=== PATIENT | female | born 1940 | race Caucasian/White ===

== ENCOUNTER 2017-12-26 17:30 | Inpatient (IN) | payer MEDICARE ==
[~2017-12-26] VITALS: Ht 157.5 cm; Wt 65.0 kg
[2017-12-26] VITALS (16 sets, daily range): BP systolic 90–140; BP diastolic 64–89; BMI 28.4
--- NOTE | ~2017-12-26 | CN ---
PATIENT NAME:KAVON BAILEY MEDICAL RECORD: [id number] : 38 LOCATION:[facility].[id number] ADMIT DATE: 12/26/17 ACCOUNT: [id number] CONSULTING PHYSICIAN: ANRDES PARRY MD REFERRING PHYSICIAN: WINSTON JOHNSON MD DATE OF CONSULTATION: 12/27/2017 CONSULT REQUESTING PHYSICIAN: Winston Johnson MD REASON FOR CONSULTATION: Acute hypoxic respiratory failure, pulmonary edema, pneumonia, WV. HISTORY OF PRESENT ILLNESS: Ms. Bailey is a 77-year-old female. She is not doing well for the last 2 weeks. She has worsening shortness of breath, orthopnea, PND. She is also having chill and cough without much sputum production. She was seen in the [place] ER, found out the patient is in pulmonary edema, acute WV, and atrial fibrillation. The patient was transferred to [facility] for advanced care. She is seen by Dr. Jimenez. REVIEW OF THE SYSTEMS: Mainly in the history of present illness. PAST MEDICAL HISTORY: 1. Hypertension. 2. Congestive heart failure. 3. WV. 4. Atrial fibrillation. 5. Angina. 6. History of CA of colon, status post resection. PAST SURGICAL HISTORY: 1. She had colon surgery. 2. Appendectomy. ALLERGIES: SHE IS ALLERGIC TO LEVAQUIN, MELOXICAM, NAPROXEN, PROMETHAZINE. MEDICATIONS: [place] [employer] reviewed. PERSONAL AND SOCIAL HISTORY: The patient has remote history of smoking. She is nondrinker. FAMILY HISTORY: Significant for cardiovascular diseases. PHYSICAL EXAMINATION: GENERAL: Now, the patient is lying comfortably in bed. She is not in acute distress. She is wearing nasal cannula oxygen. VITAL SIGNS: The blood pressure is 147/93, pulse is 128 and regular, respirations 24, temperature 97.3, SpO2 92% on 9 liters oxymizer. HEENT: Conjunctivae are pink. Sclerae are not icteric. NECK: Neck is supple. No JVD. CHEST: There are bilateral crackles. No wheezing. HEART: Rate and rhythm regular. Normal sound. No murmur. ABDOMEN: Abdomen is soft. Bowel sounds present. No hepatosplenomegaly. RECTAL: Deferred. EXTREMITIES: No cyanosis. No clubbing. No pedal edema. SKIN: The skin is warm. Normal turgor. CONSULT REPORT [id number] KAVON BAILEY CENTRAL NERVOUS SYSTEM: The patient is awake and alert. There is no obvious cranial nerve abnormality. The gait was not tested. CHEST RADIOGRAPH: There is bilateral infiltrate. There are increased interstitial markings. There are small bilateral pleural effusions. LABORATORY DATA: CBC; WBC 16.3, hemoglobin 9.3, hematocrit is 26.9, platelet count is 372. BUN is 40, creatinine is 2.7. CK is 302, CK-MB is 8.7, troponin is 3.068. ProBNP is 19,078. IMPRESSION: 1. Acute hypoxic respiratory failure. 2. Pulmonary edema. 3. Pneumonia, bilateral, most likely community-acquired pneumonia. 4. Atrial fibrillation. 5. Leukocytosis. 6. Congestive heart failure with elevated proBNP, possible systolic dysfunction. 7. Acute WV. 8. Acute renal failure. 9. Bilateral pleural effusion secondary to congestive heart failure. RECOMMENDATION: 1. We will continue supplemental oxygen. 2. Start her on Lasix IV. 3. Albuterol/ipratropium nebulizer as required. 4. Heart rate control per Dr. Jimenez. 5. Continue Rocephin and Zithromax IV. 6. Followup labs and chest radiograph. The patient does have a history of smoking, but there is no documented COPD. Dr. Johnson, thank you for involving me in the care of Ms. Bailey. The critical care time is 45 minutes. TRANSINT:[id number] Voice Confirmation ID: [id number] DOCUMENT ID: [id number] ANDRES PARRY MD at 1208 CC: TOMMY GUZMAN [id number] DICTATION DATE: 12/27/17 1519 ABRASIVE WORKER: 12/27/17 1558 ADM IN [facility] [address] [place] [address]
[2017-12-26] MEDS ORDERED: ULTRAM50 MG PO (19:54)
[2017-12-26] MEDS ORDERED: LOPRESSOR25 MG PO (20:29)
[2017-12-26] MEDS ORDERED: FUROSEMIDE20 MG PO (20:30)
[2017-12-26] MEDS ORDERED: PRILOSEC2.5 MG PO (20:32)
[2017-12-26] MEDS ORDERED: ZESTRIL40 MG PO (20:32)
[2017-12-26] MEDS ORDERED: LIPITOR40 MG PO (20:33)
[2017-12-26] MEDS ORDERED: NORVASC10 MG PO (20:33)
[2017-12-26 20:43] LABS: CKMB 8.7 U/L (0.0-3.6); CREATINE KINASE 302 UL (21-215); FERRITIN 374 ng/mL (3-244); PRO BNP 19078 pg/mL (0-450)
[2017-12-26 20:46] LABS: TROPONIN-I 3.068 ng/mL (0.000-0.060)
[2017-12-26 20:55] LABS: % SATURATION 9 % (15-55); IRON 16 ug/dl (35-150); TOTAL IRON BIND CAPACITY 162 ug/dl (260-445); UNSAT IRON BIND CAPACITY 146 ug/dl (150-375)
[2017-12-27] VITALS (35 sets, daily range): BP systolic 104–169; BP diastolic 59–100; BMI 27.6
[2017-12-27 02:51] LABS: BASOPHILS 0 % (0-2); EOSINOPHILS 0 % (0-7); HEMATOCRIT 26.9 % (36.0-48.0); HEMOGLOBIN 9.3 g/dL (12-16); IMMATURE GRANULOCYTES 0.3 % (0-5); LYMPHOCYTES 4.5 % (15-50); MCH 26.8 pg (26.0-34.0); MCHC 34.6 g/dL (31.0-37.0); MCV 77.5 fL (80.0-100.0); MEAN PLATELET VOLUME 8.7 fL (7.4-10.4); MONOCYTES 2.1 % (2-11); NEUTROPHILS 93.1 % (40-80); PLATELET COUNT 372 10x3/uL (130-400); RBC 3.47 10x6/uL (4.00-5.40); RDW 13.7 % (11.5-14.5); WBC 16.3 10x3/uL (4.8-10.8)
[2017-12-27 03:05] LABS: CALC OSMOLALITY 263 mosm/kg (275-300); CALCIUM 8.7 mg/dL (8.5-10.1); CHLORIDE - SERUM 90 mmol/L (98-107); CKMB 27.1 U/L (0.0-3.6); CREATINE KINASE 309 UL (21-215); CREATININE - SERUM 2.7 mg/dL (0.6-1.3); GLUCOSE 130 mg/dL (74-106); POTASSIUM - SERUM 4.6 mmol/L (3.5-5.1); SODIUM 125 mmol/L (136-145); UREA NITROGEN 40 mg/dL (7-18); eGFR NON AFRICAN AMERICAN 18 mL/min (90-120)
[2017-12-27 03:06] LABS: TROPONIN-I 6.306 ng/mL (0.000-0.060)
[2017-12-27 09:17] LABS: CREATINE KINASE 303 UL (21-215)
[2017-12-27 09:21] LABS: TROPONIN-I 3.823 ng/mL (0.000-0.060)
[2017-12-28] VITALS (24 sets, daily range): BP systolic 115–145; BP diastolic 60–104; Ht 157.5 cm; Wt 65.0 kg
[2017-12-28 04:40] LABS: BASOPHILS 0 % (0-2); EOSINOPHILS 0 % (0-7); HEMATOCRIT 25.3 % (36.0-48.0); HEMOGLOBIN 8.8 g/dL (12-16); IMMATURE GRANULOCYTES 0.4 % (0-5); LYMPHOCYTES 4.4 % (15-50); MCH 26.3 pg (26.0-34.0); MCHC 34.8 g/dL (31.0-37.0); MCV 75.7 fL (80.0-100.0); MEAN PLATELET VOLUME 8.7 fL (7.4-10.4); MONOCYTES 5.8 % (2-11); NEUTROPHILS 89.4 % (40-80); PLATELET COUNT 445 10x3/uL (130-400); RBC 3.34 10x6/uL (4.00-5.40); WBC 20.2 10x3/uL (4.8-10.8)
[2017-12-28 04:55] LABS: CALCIUM 8.9 mg/dL (8.5-10.1); CARBON DIOXIDE 17.9 mmol/L (21.0-32.0); CREATININE - SERUM 2.9 mg/dL (0.6-1.3)
[2017-12-28 05:04] LABS: POTASSIUM - SERUM 3.9 mmol/L (3.5-5.1)
[2017-12-28 08:19] LABS: FOLATE (FOLIC ACID) - SERUM >20.0 ng/mL (>3.0)
[2017-12-29] VITALS (25 sets, daily range): BP systolic 104–156; BP diastolic 57–86
[2017-12-29 04:42] LABS: BASOPHILS 0.1 % (0-2); EOSINOPHILS 0 % (0-7); HEMATOCRIT 25.4 % (36.0-48.0); HEMOGLOBIN 8.7 g/dL (12-16); IMMATURE GRANULOCYTES 0.7 % (0-5); LYMPHOCYTES 5.8 % (15-50); MCHC 34.3 g/dL (31.0-37.0); MCV 75.8 fL (80.0-100.0); MEAN PLATELET VOLUME 8.9 fL (7.4-10.4); MONOCYTES 3.8 % (2-11); NEUTROPHILS 89.6 % (40-80); PLATELET COUNT 447 10x3/uL (130-400); RBC 3.35 10x6/uL (4.00-5.40); RDW 14.1 % (11.5-14.5); WBC 19.9 10x3/uL (4.8-10.8)
[2017-12-29 04:51] LABS: ANION GAP 22.9 mmol/L (8-16); CALCIUM 8.7 mg/dL (8.5-10.1); CARBON DIOXIDE 17.1 mmol/L (21.0-32.0); CREATININE - SERUM 3.3 mg/dL (0.6-1.3)
[2017-12-30] VITALS (24 sets, daily range): BP systolic 112–179; BP diastolic 56–109
[2017-12-30 05:13] LABS: CALCIUM 8.4 mg/dL (8.5-10.1); CARBON DIOXIDE 17.2 mmol/L (21.0-32.0); CREATININE - SERUM 3.9 mg/dL (0.6-1.3); POTASSIUM - SERUM 3.9 mmol/L (3.5-5.1)
[2017-12-30 05:17] LABS: BASOPHILS 0 % (0-2); EOSINOPHILS 0 % (0-7); HEMATOCRIT 24.1 % (36.0-48.0); HEMOGLOBIN 8.4 g/dL (12-16); LYMPHOCYTES 5.7 % (15-50); MCH 26.2 pg (26.0-34.0); MCHC 34.9 g/dL (31.0-37.0); MCV 75.1 fL (80.0-100.0); MEAN PLATELET VOLUME 8.8 fL (7.4-10.4); MONOCYTES 4.1 % (2-11); NEUTROPHILS 89.2 % (40-80); PLATELET COUNT 408 10x3/uL (130-400); RBC 3.21 10x6/uL (4.00-5.40); RDW 14.2 % (11.5-14.5); WBC 20.9 10x3/uL (4.8-10.8)
[2017-12-30 05:22] LABS: ANION GAP 21.7 mmol/L (8-16)
[2017-12-31] VITALS (24 sets, daily range): BP systolic 100–182; BP diastolic 48–103
[2017-12-31 05:37] LABS: BASOPHILS 0.1 % (0-2); EOSINOPHILS 0 % (0-7); HEMATOCRIT 27.3 % (36.0-48.0); HEMOGLOBIN 9.3 g/dL (12-16); IMMATURE GRANULOCYTES 1.3 % (0-5); LYMPHOCYTES 2.6 % (15-50); MCHC 34.1 g/dL (31.0-37.0); MCV 76.3 fL (80.0-100.0); MEAN PLATELET VOLUME 8.5 fL (7.4-10.4); MONOCYTES 3.8 % (2-11); NEUTROPHILS 92.2 % (40-80); PLATELET COUNT 388 10x3/uL (130-400); RBC 3.58 10x6/uL (4.00-5.40); RDW 14.3 % (11.5-14.5); WBC 30.1 10x3/uL (4.8-10.8)
[2017-12-31 05:55] LABS: CALCIUM 8.5 mg/dL (8.5-10.1); CARBON DIOXIDE 13.8 mmol/L (21.0-32.0); CREATININE - SERUM 4.8 mg/dL (0.6-1.3); POTASSIUM - SERUM 4.2 mmol/L (3.5-5.1)
[2017-12-31 06:02] LABS: ANION GAP 26.4 mmol/L (8-16)
[2018-01-01] VITALS (66 sets, daily range): BP systolic 85–149; BP diastolic 35–81
[2018-01-01 09:06] LABS: BASOPHILS 0.1 % (0-2); EOSINOPHILS 0.1 % (0-7); HEMATOCRIT 20.6 % (36.0-48.0); IMMATURE GRANULOCYTES 1.9 % (0-5); LYMPHOCYTES 6.2 % (15-50); MCH 25.9 pg (26.0-34.0); MEAN PLATELET VOLUME 8.2 fL (7.4-10.4); MONOCYTES 0.3 % (2-11); NEUTROPHILS 91.4 % (40-80); PLATELET COUNT 318 10x3/uL (130-400); RDW 14.5 % (11.5-14.5)
[2018-01-01 09:14] LABS: ALBUMIN 1.5 g/dL (3.4-5.0); ANION GAP 18.1 mmol/L (8-16); BILIRUBIN - TOTAL 0.33 mg/dL (0.2-1.3); CREATININE - SERUM 4.1 mg/dL (0.6-1.3); MAGNESIUM - SERUM 1.5 mg/dL (1.8-2.4); PHOSPHOROUS 5.2 mg/dL (2.5-4.9); POTASSIUM - SERUM 3.7 mmol/L (3.5-5.1); PROTEIN - SERUM 5.3 g/dL (6.4-8.2)
[2018-01-01 09:16] LABS: CARBON DIOXIDE 22.6 mmol/L (21.0-32.0)
[2018-01-01 09:26] LABS: MCV 74.1 fL (80.0-100.0); RBC 2.78 10x6/uL (4.00-5.40)
[2018-01-01 09:28] LABS: HEMOGLOBIN 7.2 g/dL (12-16)
[2018-01-01 11:10] LABS: HEPATITIS C ANTIBODY <0.1 (0.0-0.9)
[2018-01-02] VITALS (32 sets, daily range): BP systolic 93–122; BP diastolic 36–71
[2018-01-02 04:08] LABS: BASOPHILS 0.2 % (0-2); EOSINOPHILS 0.1 % (0-7); HEMATOCRIT 22.9 % (36.0-48.0); HEMOGLOBIN 7.8 g/dL (12-16); IMMATURE GRANULOCYTES 4.2 % (0-5); LYMPHOCYTES 4.1 % (15-50); MCH 26.4 pg (26.0-34.0); MCHC 34.1 g/dL (31.0-37.0); MEAN PLATELET VOLUME 8.6 fL (7.4-10.4); MONOCYTES 11.6 % (2-11); NEUTROPHILS 79.8 % (40-80); RBC 2.96 10x6/uL (4.00-5.40); RDW 14.9 % (11.5-14.5); WBC 13.9 10x3/uL (4.8-10.8)
[2018-01-02 04:09] LABS: MCV 77.4 fL (80.0-100.0); PLATELET COUNT 240 10x3/uL (130-400)
[2018-01-02 04:26] LABS: ALBUMIN 1.2 g/dL (3.4-5.0); ANION GAP 14.6 mmol/L (8-16); BILIRUBIN - TOTAL 0.3 mg/dL (0.2-1.3); CALCIUM 7.8 mg/dL (8.5-10.1); CARBON DIOXIDE 25.8 mmol/L (21.0-32.0); POTASSIUM - SERUM 3.4 mmol/L (3.5-5.1); PROTEIN - SERUM 4.6 g/dL (6.4-8.2)
[2018-01-02 04:36] LABS: CREATININE - SERUM 2.9 mg/dL (0.6-1.3); PHOSPHOROUS 3.6 mg/dL (2.5-4.9)
[2018-01-02 07:57] LABS: APPEARANCE CLOUDY (CLEAR); BILIRUBIN NEGATIVE (NEGATIVE); COLOR DK YELLOW (YELLOW); GLUCOSE 50 mg/dL (NEGATIVE); KETONE NEGATIVE (NEGATIVE); NITRITE NEGATIVE (NEGATIVE); PROTEIN NEGATIVE (NEGATIVE); UROBILINOGEN NORMAL (NORMAL)
[2018-01-02 08:00] LABS: BACTERIA MODERATE /hpf (NONE SEEN); EPITHELIAL CELLS 0-5 /hpf (0-5)
[2018-01-03] VITALS (23 sets, daily range): BP systolic 86–175; BP diastolic 43–99
[2018-01-03 04:11] LABS: BASOPHILS 0.1 % (0-2); EOSINOPHILS 0.1 % (0-7); HEMATOCRIT 26.9 % (36.0-48.0); IMMATURE GRANULOCYTES 6.3 % (0-5); LYMPHOCYTES 3.7 % (15-50); MCH 27.5 pg (26.0-34.0); MCHC 35.3 g/dL (31.0-37.0); MEAN PLATELET VOLUME 8.6 fL (7.4-10.4); MONOCYTES 7.7 % (2-11); NEUTROPHILS 82.1 % (40-80); PLATELET COUNT 242 10x3/uL (130-400); RBC 3.45 10x6/uL (4.00-5.40); RDW 15.5 % (11.5-14.5)
[2018-01-03 04:21] LABS: HEMOGLOBIN 9.5 g/dL (12-16); WBC 19.7 10x3/uL (4.8-10.8)
[2018-01-03 04:22] LABS: ANION GAP 16.8 mmol/L (8-16); CALCIUM 8.7 mg/dL (8.5-10.1); CARBON DIOXIDE 26.1 mmol/L (21.0-32.0); POTASSIUM - SERUM 3.9 mmol/L (3.5-5.1)
[2018-01-03 04:24] LABS: ALBUMIN 1.6 g/dL (3.4-5.0); CREATININE - SERUM 4.2 mg/dL (0.6-1.3)
[2018-01-03 04:35] LABS: BILIRUBIN - TOTAL 0.4 mg/dL (0.2-1.3); PROTEIN - SERUM 5.5 g/dL (6.4-8.2)
[2018-01-04] VITALS (16 sets, daily range): BP systolic 95–163; BP diastolic 44–89
[2018-01-04 05:37] LABS: HEMOGLOBIN 9.4 g/dL (12-16); MCHC 33.6 g/dL (31.0-37.0); MCV 80.5 fL (80.0-100.0); MEAN PLATELET VOLUME 9.1 fL (7.4-10.4); PLATELET COUNT 247 10x3/uL (130-400); RBC 3.48 10x6/uL (4.00-5.40); WBC 21.2 10x3/uL (4.8-10.8)
[2018-01-04 05:57] LABS: ALBUMIN 1.6 g/dL (3.4-5.0); ANION GAP 14.1 mmol/L (8-16); BILIRUBIN - TOTAL 0.3 mg/dL (0.2-1.3); CALCIUM 8.2 mg/dL (8.5-10.1); CARBON DIOXIDE 26.7 mmol/L (21.0-32.0); CREATININE - SERUM 3.6 mg/dL (0.6-1.3); PHOSPHOROUS 2.8 mg/dL (2.5-4.9); POTASSIUM - SERUM 3.8 mmol/L (3.5-5.1); PROTEIN - SERUM 5.2 g/dL (6.4-8.2)
[2018-01-04 07:33] LABS: EOSINOPHILS 2 % (0-7); LYMPHOCYTES 12 % (15-50); MONOCYTES 10 % (2-11); NEUTROPHILS 63 % (40-80); PLATELET ESTIMATE NORMAL
[2018-01-04 07:34] LABS: ANISOCYTOSIS OCC
[2018-01-05] VITALS (24 sets, daily range): BP systolic 141–184; BP diastolic 50–100
[2018-01-05 04:28] LABS: BASOPHILS 0.2 % (0-2); EOSINOPHILS 0.1 % (0-7); HEMATOCRIT 30.4 % (36.0-48.0); HEMOGLOBIN 10.1 g/dL (12-16); IMMATURE GRANULOCYTES 6.2 % (0-5); LYMPHOCYTES 3.6 % (15-50); MCHC 33.2 g/dL (31.0-37.0); MCV 81.3 fL (80.0-100.0); MEAN PLATELET VOLUME 8.9 fL (7.4-10.4); MONOCYTES 7.6 % (2-11); NEUTROPHILS 82.3 % (40-80); PLATELET COUNT 234 10x3/uL (130-400); RBC 3.74 10x6/uL (4.00-5.40); WBC 29.5 10x3/uL (4.8-10.8)
[2018-01-05 04:42] LABS: ANION GAP 16.4 mmol/L (8-16); BILIRUBIN - TOTAL 0.58 mg/dL (0.2-1.3); CALCIUM 9.1 mg/dL (8.5-10.1); CARBON DIOXIDE 25.9 mmol/L (21.0-32.0); CREATININE - SERUM 2.9 mg/dL (0.6-1.3); POTASSIUM - SERUM 4.3 mmol/L (3.5-5.1); PROTEIN - SERUM 6.2 g/dL (6.4-8.2)
[2018-01-05 04:44] LABS: ALBUMIN 2.6 g/dL (3.4-5.0)
[2018-01-05 11:48] LABS: ERYTHROCYTE SEDIMENTATION RATE 44 mm/hr (0-30)
[2018-01-06] VITALS (25 sets, daily range): BP systolic 119–178; BP diastolic 54–994
[2018-01-06 04:29] LABS: BASOPHILS 0.1 % (0-2); EOSINOPHILS 0.2 % (0-7); HEMATOCRIT 28.9 % (36.0-48.0); HEMOGLOBIN 9.7 g/dL (12-16); IMMATURE GRANULOCYTES 4.9 % (0-5); LYMPHOCYTES 3.5 % (15-50); MCH 27.5 pg (26.0-34.0); MCHC 33.6 g/dL (31.0-37.0); MCV 81.9 fL (80.0-100.0); MONOCYTES 4.6 % (2-11); NEUTROPHILS 86.7 % (40-80); PLATELET COUNT 213 10x3/uL (130-400); RBC 3.53 10x6/uL (4.00-5.40); RDW 16.4 % (11.5-14.5); WBC 27.7 10x3/uL (4.8-10.8)
[2018-01-06 04:47] LABS: ALBUMIN 2.4 g/dL (3.4-5.0); ANION GAP 15.7 mmol/L (8-16); BILIRUBIN - TOTAL 0.57 mg/dL (0.2-1.3); CALCIUM 8.8 mg/dL (8.5-10.1); CARBON DIOXIDE 26.3 mmol/L (21.0-32.0); CREATININE - SERUM 2.9 mg/dL (0.6-1.3); PROTEIN - SERUM 5.7 g/dL (6.4-8.2)
[2018-01-06 04:54] LABS: PHOSPHOROUS 3.9 mg/dL (2.5-4.9)
[2018-01-06 10:20] LABS: ANA REFLEX - DIRECT Negative (Negative)
[2018-01-07] VITALS (24 sets, daily range): BP systolic 148–180; BP diastolic 45–90
[2018-01-07 04:08] LABS: BASOPHILS 0.1 % (0-2); EOSINOPHILS 0.1 % (0-7); HEMATOCRIT 30.2 % (36.0-48.0); HEMOGLOBIN 10.2 g/dL (12-16); IMMATURE GRANULOCYTES 3.6 % (0-5); LYMPHOCYTES 3.7 % (15-50); MCH 27.3 pg (26.0-34.0); MCHC 33.8 g/dL (31.0-37.0); MCV 80.7 fL (80.0-100.0); MEAN PLATELET VOLUME 9.1 fL (7.4-10.4); MONOCYTES 3.5 % (2-11); PLATELET COUNT 205 10x3/uL (130-400); RBC 3.74 10x6/uL (4.00-5.40); RDW 16.6 % (11.5-14.5); WBC 26.8 10x3/uL (4.8-10.8)
[2018-01-07 04:31] LABS: ANION GAP 19.3 mmol/L (8-16); BILIRUBIN - TOTAL 0.8 mg/dL (0.2-1.3); CALCIUM 9.6 mg/dL (8.5-10.1); CARBON DIOXIDE 24.1 mmol/L (21.0-32.0); MAGNESIUM - SERUM 2.2 mg/dL (1.8-2.4); POTASSIUM - SERUM 4.4 mmol/L (3.5-5.1); PROTEIN - SERUM 6.6 g/dL (6.4-8.2); VANCOMYCIN - RANDOM 17.6 ug/mL (10.0-20.0)
[2018-01-07 04:33] LABS: ALBUMIN 3.4 g/dL (3.4-5.0); CREATININE - SERUM 3.8 mg/dL (0.6-1.3)
[2018-01-07 17:11] LABS: ANCA - ANTIMYELOPEROXIDASE <9.0 U/mL (0.0-9.0); ANCA - ANTIPROTEINASE 3 <3.5 U/mL (0.0-3.5); ANCA - ATYPICAL <1:20 titer (Neg:<1:20); ANCA - CYTOPLASMIC <1:20 titer (Neg:<1:20); ANCA - PERINUCLEAR <1:20 titer (Neg:<1:20)
[2018-01-08] VITALS (24 sets, daily range): BP systolic 112–177; BP diastolic 54–96
[2018-01-08 05:52] LABS: BASOPHILS 0 % (0-2); EOSINOPHILS 0 % (0-7); HEMATOCRIT 27.7 % (36.0-48.0); HEMOGLOBIN 9.3 g/dL (12-16); IMMATURE GRANULOCYTES 1.9 % (0-5); LYMPHOCYTES 6.3 % (15-50); MCH 26.9 pg (26.0-34.0); MCHC 33.6 g/dL (31.0-37.0); MCV 80.1 fL (80.0-100.0); MONOCYTES 1.2 % (2-11); NEUTROPHILS 90.6 % (40-80); PLATELET COUNT 168 10x3/uL (130-400); RBC 3.46 10x6/uL (4.00-5.40); RDW 16.6 % (11.5-14.5); WBC 24.3 10x3/uL (4.8-10.8)
[2018-01-08 06:00] LABS: ALBUMIN 3.4 g/dL (3.4-5.0); BILIRUBIN - TOTAL 0.9 mg/dL (0.2-1.3); CALCIUM 9.2 mg/dL (8.5-10.1); CARBON DIOXIDE 24.7 mmol/L (21.0-32.0); CREATININE - SERUM 3.5 mg/dL (0.6-1.3); PHOSPHOROUS 5.2 mg/dL (2.5-4.9); PROTEIN - SERUM 6.4 g/dL (6.4-8.2); VANCOMYCIN - RANDOM 11.7 ug/mL (10.0-20.0)
[2018-01-08 06:01] LABS: POTASSIUM - SERUM 3.7 mmol/L (3.5-5.1)
[2018-01-09] VITALS (10 sets, daily range): BP systolic 122–167; BP diastolic 60–75
[2018-01-09 05:07] LABS: BASOPHILS 0 % (0-2); EOSINOPHILS 0.1 % (0-7); HEMATOCRIT 26.2 % (36.0-48.0); HEMOGLOBIN 8.7 g/dL (12-16); IMMATURE GRANULOCYTES 0.8 % (0-5); LYMPHOCYTES 4.9 % (15-50); MCH 26.9 pg (26.0-34.0); MCHC 33.2 g/dL (31.0-37.0); MCV 81.1 fL (80.0-100.0); MEAN PLATELET VOLUME 9.5 fL (7.4-10.4); MONOCYTES 2.7 % (2-11); NEUTROPHILS 91.5 % (40-80); PLATELET COUNT 149 10x3/uL (130-400); RBC 3.23 10x6/uL (4.00-5.40); RDW 16.6 % (11.5-14.5); WBC 16.8 10x3/uL (4.8-10.8)
[2018-01-09 05:27] LABS: ALBUMIN 3.4 g/dL (3.4-5.0); ANION GAP 17.5 mmol/L (8-16); CALCIUM 8.9 mg/dL (8.5-10.1); CARBON DIOXIDE 24.5 mmol/L (21.0-32.0); CREATININE - SERUM 2.8 mg/dL (0.6-1.3); PROTEIN - SERUM 6.3 g/dL (6.4-8.2); VANCOMYCIN - RANDOM 9.1 ug/mL (10.0-20.0)
[2018-01-10] VITALS: BP 134/53
[2018-01-10 04:00] VITALS: BP 139/52
[2018-01-10 05:09] LABS: BASOPHILS 0 % (0-2); EOSINOPHILS 0.4 % (0-7); HEMATOCRIT 24.2 % (36.0-48.0); IMMATURE GRANULOCYTES 0.6 % (0-5); LYMPHOCYTES 8.2 % (15-50); MCH 26.6 pg (26.0-34.0); MCHC 33.1 g/dL (31.0-37.0); MCV 80.4 fL (80.0-100.0); MEAN PLATELET VOLUME 9.8 fL (7.4-10.4); MONOCYTES 4.9 % (2-11); NEUTROPHILS 85.9 % (40-80); PLATELET COUNT 121 10x3/uL (130-400); RBC 3.01 10x6/uL (4.00-5.40); RDW 16.7 % (11.5-14.5)
[2018-01-10 05:18] LABS: WBC 10.7 10x3/uL (4.8-10.8)
[2018-01-10 05:19] LABS: ALBUMIN 3.6 g/dL (3.4-5.0); ANION GAP 17.2 mmol/L (8-16); BILIRUBIN - TOTAL 0.9 mg/dL (0.2-1.3); CALCIUM 8.6 mg/dL (8.5-10.1); CARBON DIOXIDE 23.5 mmol/L (21.0-32.0); CREATININE - SERUM 3.9 mg/dL (0.6-1.3); PHOSPHOROUS 4.8 mg/dL (2.5-4.9); POTASSIUM - SERUM 3.7 mmol/L (3.5-5.1); PROTEIN - SERUM 6.1 g/dL (6.4-8.2)
[2018-01-10 08:11] VITALS: BP 151/61
[2018-01-10 12:24] VITALS: BP 139/50
[2018-01-10 15:31] VITALS: BP 135/60
[2018-01-10 20:00] VITALS: BP 144/67
[2018-01-11 06:14] LABS: BASOPHILS 0 % (0-2); EOSINOPHILS 0.2 % (0-7); HEMATOCRIT 24.5 % (36.0-48.0); HEMOGLOBIN 8.1 g/dL (12-16); IMMATURE GRANULOCYTES 0.3 % (0-5); LYMPHOCYTES 5.7 % (15-50); MCH 27.1 pg (26.0-34.0); MCHC 33.1 g/dL (31.0-37.0); MCV 81.9 fL (80.0-100.0); MEAN PLATELET VOLUME 10.2 fL (7.4-10.4); MONOCYTES 4.7 % (2-11); NEUTROPHILS 89.1 % (40-80); PLATELET COUNT 113 10x3/uL (130-400); RBC 2.99 10x6/uL (4.00-5.40); RDW 16.9 % (11.5-14.5)
[2018-01-11 06:37] LABS: BILIRUBIN - TOTAL 1.05 mg/dL (0.2-1.3); CALCIUM 8.6 mg/dL (8.5-10.1); POTASSIUM - SERUM 3.5 mmol/L (3.5-5.1); PROTEIN - SERUM 6.1 g/dL (6.4-8.2); VANCOMYCIN - RANDOM 15.8 ug/mL (10.0-20.0)
[2018-01-11 06:41] LABS: CARBON DIOXIDE 29.5 mmol/L (21.0-32.0); CREATININE - SERUM 2.9 mg/dL (0.6-1.3)
[2018-01-11 08:24] VITALS: BP 137/66
[2018-01-11 12:35] VITALS: BP 106/46
[2018-01-11 15:47] VITALS: BP 122/58
[2018-01-11 20:00] VITALS: BP 134/44
[2018-01-12] VITALS: BP 137/46
[2018-01-12 04:00] VITALS: BP 141/53
[2018-01-12 07:03] LABS: BASOPHILS 0.1 % (0-2); EOSINOPHILS 0.8 % (0-7); HEMATOCRIT 24.8 % (36.0-48.0); HEMOGLOBIN 8.1 g/dL (12-16); IMMATURE GRANULOCYTES 0.3 % (0-5); LYMPHOCYTES 8.6 % (15-50); MCH 26.9 pg (26.0-34.0); MCHC 32.7 g/dL (31.0-37.0); MCV 82.4 fL (80.0-100.0); MEAN PLATELET VOLUME 10.4 fL (7.4-10.4); MONOCYTES 5.5 % (2-11); NEUTROPHILS 84.7 % (40-80); PLATELET COUNT 94 10x3/uL (130-400); RBC 3.01 10x6/uL (4.00-5.40); RDW 17.1 % (11.5-14.5); WBC 9.7 10x3/uL (4.8-10.8)
[2018-01-12 08:40] VITALS: BP 138/48
[2018-01-12 16:15] VITALS: BP 136/42
[2018-01-12 20:04] VITALS: BP 114/40
[2018-01-13 06:21] VITALS: BP 118/88
[2018-01-13 06:39] LABS: BASOPHILS 0 % (0-2); EOSINOPHILS 0.5 % (0-7); IMMATURE GRANULOCYTES 0.1 % (0-5); LYMPHOCYTES 7.2 % (15-50); MCHC 32.2 g/dL (31.0-37.0); MCV 83.9 fL (80.0-100.0); MONOCYTES 6.3 % (2-11); NEUTROPHILS 85.9 % (40-80); PLATELET COUNT 96 10x3/uL (130-400); RBC 2.74 10x6/uL (4.00-5.40); RDW 17.2 % (11.5-14.5); WBC 9.5 10x3/uL (4.8-10.8)
[2018-01-13 07:00] LABS: HEMOGLOBIN 7.4 g/dL (12-16)
[2018-01-13 07:19] LABS: PLATELET ESTIMATE DECREASED
[2018-01-13 07:28] LABS: ALBUMIN 4.1 g/dL (3.4-5.0); ANION GAP 15.1 mmol/L (8-16); BILIRUBIN - TOTAL 0.94 mg/dL (0.2-1.3); CALCIUM 8.8 mg/dL (8.5-10.1); CARBON DIOXIDE 28.9 mmol/L (21.0-32.0); CREATININE - SERUM 2.7 mg/dL (0.6-1.3); PROTEIN - SERUM 6.1 g/dL (6.4-8.2)
[2018-01-13 08:50] VITALS: BP 100/49
[2018-01-13 12:03] VITALS: BP 149/53
[2018-01-13 15:28] VITALS: BP 112/37
[2018-01-13 20:38] VITALS: BP 120/69
[2018-01-14 00:05] VITALS: BP 154/49
[2018-01-14 04:39] VITALS: BP 125/42
[2018-01-14 05:27] LABS: ALBUMIN 4.1 g/dL (3.4-5.0); ANION GAP 17.8 mmol/L (8-16); BILIRUBIN - TOTAL 0.88 mg/dL (0.2-1.3); CALCIUM 8.8 mg/dL (8.5-10.1); CARBON DIOXIDE 25.6 mmol/L (21.0-32.0); CREATININE - SERUM 4.2 mg/dL (0.6-1.3); POTASSIUM - SERUM 3.4 mmol/L (3.5-5.1); PROTEIN - SERUM 6.6 g/dL (6.4-8.2)
[2018-01-14 05:37] LABS: BASOPHILS 0.1 % (0-2); EOSINOPHILS 0.7 % (0-7); HEMATOCRIT 24.5 % (36.0-48.0); HEMOGLOBIN 8.3 g/dL (12-16); IMMATURE GRANULOCYTES 0.4 % (0-5); LYMPHOCYTES 9.9 % (15-50); MCH 27.8 pg (26.0-34.0); MCHC 33.9 g/dL (31.0-37.0); MEAN PLATELET VOLUME 9.8 fL (7.4-10.4); MONOCYTES 6.5 % (2-11); NEUTROPHILS 82.4 % (40-80); PLATELET COUNT 94 10x3/uL (130-400); RBC 2.99 10x6/uL (4.00-5.40); RDW 16.9 % (11.5-14.5); WBC 8.5 10x3/uL (4.8-10.8)
[2018-01-14 05:47] LABS: MCV 81.9 fL (80.0-100.0)
[2018-01-14 08:02] VITALS: BP 133/52
[2018-01-14] MEDS ORDERED: IPRAT-ALBUT 0.5-3 ML IH (11:47)
[2018-01-14] MEDS ORDERED: ALBUTEROL2.5 MG/3 M INH (11:47)
[2018-01-14] MEDS ORDERED: CORDARONE200 MG PO (11:48)
[2018-01-14] MEDS ORDERED: COREG12.5 MG PO (11:49)
[2018-01-14] MEDS ORDERED: CARDIZEM 90 MG90 MG PO (11:49)
[2018-01-14] MEDS ORDERED: FLORAJEN3 CAPS460 MG PO (11:51)
[2018-01-14] MEDS ORDERED: COLACE100 MG PO (11:51)
[2018-01-14] MEDS ORDERED: HUMULIN R100 U/ML SC (11:53)
[2018-01-14] MEDS ORDERED: PREDNISONE10 MG PO (11:58)
[2018-01-14 15:19] VITALS: BP 151/49
== END 2018-01-14 18:30 | DRG 207 ==
LOC: D.ICU 17:30 → D.M2 19:00 → D.ICU 19:00 → D.M2 01-09 18:07
PROVIDERS: Emergency Medicine; Family Medicine; Internal Medicine; Internal Medicine Nephrology
PROC: 5A09357 Assistance with Respiratory Ventilation, Less than 24 Consecutive Hours, Continuous Positive Airway Pressure (ICD-10-PCS; principal; 2017-12-26)
PROC: 5A1955Z Respiratory Ventilation, Greater than 96 Consecutive Hours (ICD-10-PCS; 2017-12-31)
PROC: 0BH17EZ Insertion of Endotracheal Airway into Trachea, Via Natural or Artificial Opening (ICD-10-PCS; 2017-12-31)
PROC: 05H633Z Insertion of Infusion Device into Left Subclavian Vein, Percutaneous Approach (ICD-10-PCS; 2017-12-31)
DX: J18.9 Pneumonia, unspecified organism (principal); J96.01 Acute respiratory failure with hypoxia; I50.23 Acute on chronic systolic (congestive) heart failure; N18.6 End stage renal disease; I21.A1 Myocardial infarction type 2; I13.0 Hypertensive heart and chronic kidney disease with heart failure and stage 1 through stage 4 chronic kidney disease, or unspecified chronic kidney disease; N17.9 Acute kidney failure, unspecified; J81.1 Chronic pulmonary edema; J90 Pleural effusion, not elsewhere classified; E87.1 Hypo-osmolality and hyponatremia; I13.2 Hypertensive heart and chronic kidney disease with heart failure and with stage 5 chronic kidney disease, or end stage renal disease; N39.0 Urinary tract infection, site not specified; G72.81 Critical illness myopathy; E44.0 Moderate protein-calorie malnutrition; E11.22 Type 2 diabetes mellitus with diabetic chronic kidney disease; I48.91 Unspecified atrial fibrillation; D72.829 Elevated white blood cell count, unspecified; D50.9 Iron deficiency anemia, unspecified; I25.9 Chronic ischemic heart disease, unspecified; Z68.28 Body mass index [BMI] 28.0-28.9, adult

== ENCOUNTER 2018-01-14 16:56 | Inpatient (IN) | payer MEDICARE, BC ==
[~2018-01-14] VITALS: Ht 157.5 cm; Wt 65.5 kg
--- NOTE | ~2018-01-14 | RHP ---
PATIENT: KAVON BAILEY MEDICAL RECORD: [id number] ACCOUNT: [id number] LOCATION:[facility]1117 : 39 ADMISSION DATE: 01/14/18 REHABILITATION HISTORY AND PHYSICAL EXAMINATION POST ADMISSION PHYSICIAN EXAMINATION POST-ADMISSION PHYSICAL EXAMINATION AND HISTORY AND PHYSICAL DATE OF ADMISSION: 01/14/2018 ADMITTING DIAGNOSIS: Critical illness myopathy. HISTORY OF PRESENT ILLNESS: The patient admitted to the inpatient rehab for critical illness myopathy. She is a 77-year-old female patient that is a former smoker, who presented to [place] as a transfer for higher level of care after a 2-week history of increasing dyspnea and nonproductive cough. She denied any chest pain at that time. She states that she had not been doing well for the previous 2 weeks. She had worsening shortness of breath, orthopnea, paroxysmal nocturnal dyspnea. She was having chills and cough without much sputum production. She was seen at [place] ER, was found to have pulmonary edema and an acute [place] and atrial fib. The patient was transferred to [place] for advanced care. Dr. Jimenez, Dr. Bartlett, and Dr. Mcgregor were consulted. She has no known cardiac history. On exam, she was in atrial fib. Cardiac enzymes were positive. Her renal functions were abnormal. She states that she has a longstanding history of anemia and currently takes iron. She has stage IV chronic kidney disease, followed by at [place]. On admit, she was placed in ICU with AFib with rapid ventricular response. She was started on an amiodarone drip and Cardizem. Echo showed a left ventricular ejection fraction of 30% with ebjfzkxn-gm-egnevy mitral regurg. She was diuresed with IV Lasix over the previous 3 days. Creatinine worsened from 2.7 to 3.9. Urine output was trending down. On 12/31, she had a Trialysis catheter placed for hemodialysis. She was also placed on ventilator for multifactorial acute hypoxic respiratory failure. On 01/04, she was extubated to 4-6 liters of O2 per Oxymizer and BiPAP as needed. On 01/09, she was moved out of ICU to a telemetry bed. She is currently on 3 liters of O2 per Oxymizer and BiPAP at bedtime. She is in a normal sinus rhythm with episodes of atrial flutter. She has a Ibrahim catheter for accurate I's and O's and is getting hemodialysis 3 times a week. She has had a prolonged immobility, progressive generalized weakness, especially in her lower extremities affecting her tolerance to PT. She is very fatigued, has limited flexion and extension of her lower extremities. Proximal muscle strength is decreased. She is kmsdwpca-fl-hjm assist for ADLs and tjfgmebv-zu-ymz assist for wvp-ck-kxdks and rgd-od-eotei. She is highly motivated and has good family support to regain her strength and also return back home, where she was moderately independent at that time. Comorbidities in this patient include acute hypoxic respiratory failure, pulmonary edema, pneumonia, alveolar interstitial edema, leukocytosis, congestive heart failure, acute [place], gyqyw-va-mhfmloh renal failure, bilateral pleural effusions, hyponatremia, anemia, atrial flutter, non-Q-wave [place], cardiomyopathy, valvular heart disease, end-stage renal disease, respiratory failure, chronic kidney disease with stage IV noted, and systolic congestive heart failure and atrial fib. PAST MEDICAL HISTORY: Significant for hypertension, congestive heart failure, coronary artery disease, atrial fib, angina, history of colon cancer, hyperlipidemia, chronic kidney disease, diabetes, rheumatic fever as a kid, HISTORY AND PHYSICAL [id number] KAVON BAILEY appendectomy in the past, degenerative disc disease, small bowel obstruction, iron deficiency, osteoarthritis, vertigo, weakness, pneumonia, history of tobacco use, kidney stones, renal failure, arthritis, chronic back pain. PAST SURGICAL HISTORY: Includes colon surgery and appendectomy. ALLERGIES: NAPROXEN, PROMETHAZINE, MELOXICAM, AND LEVAQUIN. CURRENT MEDICATIONS: Include prednisone, she is on a tapering dose. Protonix 40 mg daily. She is on Floranex. [facility]. Cardizem 90 mg every 6 hours. She is on Coreg 12.5 mg b.i.d. with meals, atorvastatin 40 mg daily. She is on low-resistant sliding scale insulin, Colace 100 mg b.i.d., Cordarone 400 mg t.i.d., Ventolin 2.5 mg every 4 hours p.r.n., and polyethylene glycol 17 grams in 8 ounces of water daily. HABITS: No history of alcohol or tobacco use at this time. Does have a previous history of tobacco use. FAMILY HISTORY: Noncontributory. SOCIAL HISTORY: The patient hopes to return back home over to the [facility] and get back to her prior level of functioning. REVIEW OF SYSTEMS: GENERAL: Does complain of weakness and fatigue. HEENT: Denies cold, cough, or congestion. CARDIOVASCULAR: Denies chest pain. PHYSICAL EXAMINATION: VITAL SIGNS: Stable, afebrile. GENERAL: Elderly female, in no acute distress upon exam. HEENT: Normocephalic and atraumatic. Mucosa moist. NECK: Supple. No lymphadenopathy. LUNGS: Clear at this time. HEART: Irregular rate and rhythm. ABDOMEN: Benign. EXTREMITIES: No clubbing, cyanosis or edema. NEUROLOGIC: She is intact. LABORATORY DATA: Her white count is 8.0, H&H of 8.3 and 25.2, and platelet count was noted to be 123. Sodium is 134, potassium 3.5, BUN and creatinine of 34 and 3.5, and blood sugar is noted to be 101. ASSESSMENT: This is a 77-year-old female patient admitted to rehab with a working diagnosis of critical illness myopathy secondary to prolonged stay in the ICU. The patient has potential to make improvement. We will institute the following multidisciplinary therapies including, but not limited to physical, occupational, respiratory, speech, nutritional services, prosthetics and orthotics. Given her complex medical condition and risks for more complications, rehabilitation services cannot be provided at a low level of care such as a halfway facility. PLAN: 1. Admit to [facility] for intensive inpatient therapy to include the following disciplines: HISTORY AND PHYSICAL [id number] KAVON BAILEY A. Physical therapy to improve gait, all transfer skills and bed mobility to a modified independent level. B. Occupational therapy to improve activities of daily living to a modified independent level. C. Case management to assist with discharge planning and placement options. D. Nutrition to assist with nutritional needs. E. Rehabilitation nursing to assist in monitoring the patient's underlying medical conditions and to assist with any type of bowel or bladder management. 2. The patient's current medications and medical care will be continued. 3. The patient will be placed on standard fall precautions. 4. The patient's estimated length of stay is approximately 7-10 days. 5. We will discuss this patient during care team staff meeting this week. I am going to go ahead and let renal address her current renal functions and also H&H. TRANSINT:[id number] Voice Confirmation ID: [id number] DOCUMENT ID: [id number] [place] notes whether there has been none or any medical/functional change since admission: - No change since prescreen. [place] attests patient continues to be appropriate for IRF: - Continues to be appropriate. TOMMY GUZMAN MD at 1405 CC: [id number] DICTATION DATE: 01/15/18 09 INDUSTRIAL SPRAYPAINTER: 01/15/18 1201 ADM IN [facility] [address] [place] [address]
[~2018-01-14 16:56] MED LIST: ALBUTEROL2.5 MG/3 M INH; CARDIZEM 90 MG90 MG PO; COLACE100 MG PO; CORDARONE200 MG PO; COREG12.5 MG PO; FLORAJEN3 CAPS460 MG PO; FUROSEMIDE20 MG PO; HUMULIN R100 U/ML SC; IPRAT-ALBUT 0.5-3 ML IH; LIPITOR40 MG PO; LOPRESSOR25 MG PO; NORVASC10 MG PO; PREDNISONE10 MG PO; PRILOSEC2.5 MG PO; ULTRAM50 MG PO; ZESTRIL40 MG PO
[2018-01-14 19:57] VITALS: BMI 28.0
[2018-01-15 06:58] LABS: BASOPHILS 0.1 % (0-2); EOSINOPHILS 0.5 % (0-7); HEMATOCRIT 25.2 % (36.0-48.0); HEMOGLOBIN 8.3 g/dL (12-16); IMMATURE GRANULOCYTES 0.4 % (0-5); LYMPHOCYTES 8.5 % (15-50); MCH 26.9 pg (26.0-34.0); MCHC 32.9 g/dL (31.0-37.0); MCV 81.6 fL (80.0-100.0); MEAN PLATELET VOLUME 10.1 fL (7.4-10.4); MONOCYTES 6.7 % (2-11); NEUTROPHILS 83.8 % (40-80); PLATELET COUNT 123 10x3/uL (130-400); RBC 3.09 10x6/uL (4.00-5.40); RDW 17.1 % (11.5-14.5)
[2018-01-15 07:13] LABS: ANION GAP 15.9 mmol/L (8-16); CARBON DIOXIDE 27.6 mmol/L (21.0-32.0); CREATININE - SERUM 3.5 mg/dL (0.6-1.3); POTASSIUM - SERUM 3.5 mmol/L (3.5-5.1)
[2018-01-15 10:16] VITALS: BMI 28.0
[2018-01-15 11:54] VITALS: BP 144/50
[2018-01-15 17:54] VITALS: BP 120/48
[2018-01-15 20:49] VITALS: BP 113/67
[2018-01-16 01:02] VITALS: BP 153/60
[2018-01-16 06:15] VITALS: BP 178/73
[2018-01-16 11:53] VITALS: BP 144/54
[2018-01-16 17:58] VITALS: BP 160/78
[2018-01-16 19:30] VITALS: BP 138/72
[2018-01-16 23:52] VITALS: BP 163/82
[2018-01-17 05:50] VITALS: BP 149/64
[2018-01-17 07:24] LABS: BASOPHILS 0.2 % (0-2); EOSINOPHILS 0.9 % (0-7); HEMATOCRIT 28.4 % (36.0-48.0); HEMOGLOBIN 9.8 g/dL (12-16); IMMATURE GRANULOCYTES 0.6 % (0-5); LYMPHOCYTES 8.2 % (15-50); MCH 27.5 pg (26.0-34.0); MCHC 34.5 g/dL (31.0-37.0); MCV 79.8 fL (80.0-100.0); MONOCYTES 8.1 % (2-11); PLATELET COUNT 194 10x3/uL (130-400); RBC 3.56 10x6/uL (4.00-5.40); RDW 16.7 % (11.5-14.5); WBC 8.9 10x3/uL (4.8-10.8)
[2018-01-17 07:25] LABS: ANION GAP 21.3 mmol/L (8-16); CALCIUM 9.3 mg/dL (8.5-10.1); CARBON DIOXIDE 21.8 mmol/L (21.0-32.0); CREATININE - SERUM 5.8 mg/dL (0.6-1.3); POTASSIUM - SERUM 4.1 mmol/L (3.5-5.1)
[2018-01-17 08:00] VITALS: BP 163/73
[2018-01-17 12:00] VITALS: BP 138/52
[2018-01-17 18:21] VITALS: BP 148/71
[2018-01-17 19:00] VITALS: BP 149/49
[2018-01-17 23:47] VITALS: BP 164/79
[2018-01-18 05:52] VITALS: BP 133/50
[2018-01-18 08:33] VITALS: BP 138/48
[2018-01-18 12:00] VITALS: BP 126/44
[2018-01-18 17:54] VITALS: BP 144/55
[2018-01-19 05:22] VITALS: BP 129/54
[2018-01-19 07:37] VITALS: BP 129/54
[2018-01-19 19:00] VITALS: BP 153/48
[2018-01-20 00:36] VITALS: BP 143/46
[2018-01-20 05:33] LABS: BASOPHILS 0.3 % (0-2); HEMATOCRIT 25.6 % (36.0-48.0); HEMOGLOBIN 8.3 g/dL (12-16); LYMPHOCYTES 12.4 % (15-50); MCH 26.8 pg (26.0-34.0); MCHC 32.4 g/dL (31.0-37.0); MCV 82.6 fL (80.0-100.0); MEAN PLATELET VOLUME 9.2 fL (7.4-10.4); MONOCYTES 8.8 % (2-11); NEUTROPHILS 76.5 % (40-80); PLATELET COUNT 210 10x3/uL (130-400); RDW 17.4 % (11.5-14.5); WBC 5.9 10x3/uL (4.8-10.8)
[2018-01-20 05:46] LABS: ANION GAP 13.7 mmol/L (8-16); CALCIUM 8.9 mg/dL (8.5-10.1); CARBON DIOXIDE 28.4 mmol/L (21.0-32.0); CREATININE - SERUM 3.5 mg/dL (0.6-1.3); POTASSIUM - SERUM 3.1 mmol/L (3.5-5.1)
[2018-01-20 06:14] VITALS: BP 141/46
[2018-01-20 12:00] VITALS: BP 169/50
[2018-01-20 18:00] VITALS: BP 173/49
[2018-01-20 19:09] VITALS: BP 173/49
[2018-01-21 00:13] VITALS: BP 137/65
[2018-01-21 06:00] VITALS: BP 147/53
[2018-01-21 18:00] VITALS: BP 145/46
[2018-01-22 00:28] VITALS: BP 140/43
[2018-01-22 05:34] VITALS: BP 147/41
[2018-01-22 06:10] LABS: BASOPHILS 0.2 % (0-2); EOSINOPHILS 1.9 % (0-7); HEMATOCRIT 25.1 % (36.0-48.0); HEMOGLOBIN 8.2 g/dL (12-16); IMMATURE GRANULOCYTES 1.5 % (0-5); LYMPHOCYTES 19.7 % (15-50); MCH 27.2 pg (26.0-34.0); MCHC 32.7 g/dL (31.0-37.0); MCV 83.4 fL (80.0-100.0); MEAN PLATELET VOLUME 8.7 fL (7.4-10.4); MONOCYTES 12.2 % (2-11); NEUTROPHILS 64.5 % (40-80); PLATELET COUNT 232 10x3/uL (130-400); RBC 3.01 10x6/uL (4.00-5.40); RDW 17.7 % (11.5-14.5); WBC 4.8 10x3/uL (4.8-10.8)
[2018-01-22 06:26] LABS: ANION GAP 14.6 mmol/L (8-16); CALCIUM 8.3 mg/dL (8.5-10.1); CARBON DIOXIDE 28.5 mmol/L (21.0-32.0); CREATININE - SERUM 3.5 mg/dL (0.6-1.3); POTASSIUM - SERUM 3.1 mmol/L (3.5-5.1)
[2018-01-22 08:19] VITALS: BP 168/48
[2018-01-22 12:00] VITALS: BP 162/46
[2018-01-22 18:12] VITALS: BP 160/69
[2018-01-22 20:32] VITALS: BP 128/46
[2018-01-23 00:05] VITALS: BP 121/59
[2018-01-23 05:27] VITALS: BP 139/47
[2018-01-23 10:49] VITALS: BP 145/45
[2018-01-23 12:40] VITALS: BP 140/42
[2018-01-23 17:54] VITALS: BP 151/50
[2018-01-23 20:20] VITALS: BP 140/42
[2018-01-24 00:05] VITALS: BP 165/47
[2018-01-24 06:38] VITALS: BP 143/48
[2018-01-24 08:34] VITALS: BP 133/41
[2018-01-24 18:00] VITALS: BP 152/49
[2018-01-25] VITALS: BP 166/60
[2018-01-25 05:00] VITALS: BP 163/60
[2018-01-25 08:00] VITALS: BP 171/76
[2018-01-25 12:00] VITALS: BP 130/46
[2018-01-25 19:00] VITALS: BP 140/50
[2018-01-26 01:18] VITALS: BP 123/58
[2018-01-26 06:34] LABS: BASOPHILS 0.4 % (0-2); EOSINOPHILS 1.5 % (0-7); HEMATOCRIT 34.7 % (36.0-48.0); HEMOGLOBIN 10.8 g/dL (12-16); IMMATURE GRANULOCYTES 3.5 % (0-5); LYMPHOCYTES 15.4 % (15-50); MCH 25.6 pg (26.0-34.0); MCHC 31.1 g/dL (31.0-37.0); MCV 82.2 fL (80.0-100.0); MEAN PLATELET VOLUME 9.3 fL (7.4-10.4); NEUTROPHILS 69.2 % (40-80); PLATELET COUNT 210 10x3/uL (130-400); RBC 4.22 10x6/uL (4.00-5.40); RDW 17.8 % (11.5-14.5); WBC 7.9 10x3/uL (4.8-10.8)
[2018-01-26 06:40] VITALS: BP 125/64
[2018-01-26 06:47] LABS: ANION GAP 19.9 mmol/L (8-16); CALCIUM 8.7 mg/dL (8.5-10.1); CARBON DIOXIDE 24.6 mmol/L (21.0-32.0); CREATININE - SERUM 6.2 mg/dL (0.6-1.3); POTASSIUM - SERUM 3.5 mmol/L (3.5-5.1)
[2018-01-26 11:56] VITALS: BP 151/55
[2018-01-26 16:53] VITALS: BP 160/59
[2018-01-26 18:00] VITALS: BP 135/54
[2018-01-27 00:19] VITALS: BP 133/46
[2018-01-27 06:31] VITALS: BP 134/42
[2018-01-27 12:00] VITALS: BP 152/57
[2018-01-27 16:49] VITALS: Ht 157.5 cm; Wt 65.5 kg
[2018-01-27 18:00] VITALS: BP 164/60
== END 2018-01-27 23:20 | disposition short-term general hospital (02) | DRG 91 ==
LOC: D.REHAB 16:56
PROVIDERS: Emergency Medicine; Family Medicine
PROC: 5A1D70Z Performance of Urinary Filtration, Intermittent, Less than 6 Hours Per Day (ICD-10-PCS; principal; 2018-01-14)
DX: G72.81 Critical illness myopathy (principal); J18.9 Pneumonia, unspecified organism; I21.4 Non-ST elevation (NSTEMI) myocardial infarction; J96.21 Acute and chronic respiratory failure with hypoxia; I13.0 Hypertensive heart and chronic kidney disease with heart failure and stage 1 through stage 4 chronic kidney disease, or unspecified chronic kidney disease; N18.4 Chronic kidney disease, stage 4 (severe); I50.20 Unspecified systolic (congestive) heart failure; N17.9 Acute kidney failure, unspecified; J81.1 Chronic pulmonary edema; J90 Pleural effusion, not elsewhere classified; E87.1 Hypo-osmolality and hyponatremia; I48.92 Unspecified atrial flutter; I42.9 Cardiomyopathy, unspecified; E11.22 Type 2 diabetes mellitus with diabetic chronic kidney disease; D72.829 Elevated white blood cell count, unspecified; D64.9 Anemia, unspecified; I48.91 Unspecified atrial fibrillation; I34.0 Nonrheumatic mitral (valve) insufficiency

== ENCOUNTER 2018-01-27 23:45 | Inpatient (IN) | payer MEDICARE ==
[~2018-01-27] VITALS: Ht 157.5 cm; Wt 81.5 kg
--- NOTE | ~2018-01-27 | CN ---
PATIENT NAME:KAVON BAILEY MEDICAL RECORD: [id number] : 38 LOCATION:[id number] ADMIT DATE: 01/27/18 ACCOUNT: [id number] CONSULTING PHYSICIAN: ANDRES PARRY MD REFERRING PHYSICIAN: DIVINA ZALDIVAR MD DATE OF CONSULTATION: 01/28/2018 HISTORY OF PRESENT ILLNESS: Ms. Bailey is a 77-year-old female who was in rehab, coded last night. She was in cardiopulmonary arrest, resuscitated, brought into the ICU. Now, the patient will be intubated and sedated. The history was taken by reviewing the patient's note and talking to Dr. Divina Zaldivar. REVIEW OF SYSTEMS: The detail is not obtainable. PAST MEDICAL HISTORY: 1. Hypertension. 2. Congestive heart failure. 3. History of coronary artery disease and myocardial infarction. 4. Atrial fibrillation. 5. Edema. 6. History of pneumonia. 7. History of CA of the colon. 8. Rectal carcinoma. PAST SURGICAL HISTORY: 1. She has a colon resection. 2. Appendectomy. ALLERGIES: SHE IS ALLERGIC TO LEVAQUIN, MELOXICAM, NAPROXEN, AND PROMETHAZINE. MEDICATIONS: On [employer] is reviewed. PERSONAL AND SOCIAL HISTORY: The detail is not obtainable. She is a nondrinker. FAMILY HISTORY: Significant for cardiovascular disease. PHYSICAL EXAMINATION: GENERAL: Now, the patient is orally intubated and sedated. VITAL SIGNS: The blood pressure is 118/56, pulse is 66, respiration is 17, temperature is 98.4, SpO2 is 100% on assist control, mechanical ventilation with a tidal volume of 500, rate of 18, PEEP of 5. HEENT: Conjunctivae pink. Sclerae nonicteric. NECK: Supple, no JVD. CHEST: There are bilateral crackles. No wheezing. HEART: Rhythm regular, normal sound, no murmur. ABDOMEN: Soft, bowel sounds present. No hepatosplenomegaly. RECTAL: Not done. CENTRAL NERVOUS SYSTEM: The patient is orally intubated and sedated. CHEST RADIOGRAPH: ET tube is in good position. There are bilateral increased interstitial marking, increasing edema. OTHER LABORATORY DATA: CBC; the WBC is 14,000, hemoglobin 8.8, hematocrit is CONSULT REPORT [id number] KAVON BAILEY 26. Chemistry; sodium 128, potassium is 3.5, BUN is 62, creatinine is 6.4. The proBNP is 25,191, the D-dimer is 17.7. IMPRESSION: 1. Acute hypoxic respiratory failure. 2. Cardiopulmonary arrest, the etiology is not clear, rule out pulmonary embolism. 3. Congestive heart failure with chronic systolic dysfunction with the ejection fraction of 30%. 4. End-stage renal disease, on hemodialysis. 5. Pulmonary edema. 6. Atrial fibrillation. 7. Elevated D-dimer, rule out pulmonary thromboembolism. 8. Leukocytosis. 9. Anemia of chronic kidney disease. RECOMMENDATION: 1. We will continue mechanical ventilation, adjust the setting. 2. DVT and GI bleed prophylaxis. 3. Continue Levaquin 60 mg subQ b.i.d. 4. Check the ultrasound of the lower extremity. Check the CTA of the chest. 5. Continue empiric Zosyn and vancomycin, possible pneumonia. 6. Albuterol ipratropium nebulizer. 7. Follow up labs and chest radiograph. The cardiology and nephrology has already been consulted. Dr. Divina Zaldivar, thank you for involving me in the care of Ms. Bailey. The critical care time is 45 minutes. TRANSINT:[id number] Voice Confirmation ID: [id number] DOCUMENT ID: [id number] ANDRES PARRY MD at 1348 CC: [id number] DICTATION DATE: 01/28/18 1519 INFANTRY SENIOR SERGEANT: 01/28/18 1557 ADM IN [facility] [id number] [place] [address]
[2018-01-27 23:30] VITALS: BP 163/73
[2018-01-28] VITALS (65 sets, daily range): BP systolic 49–163; BP diastolic 27–95; BMI 27.7; BMI 27.8
[2018-01-28 02:51] LABS: BASOPHILS 0.3 % (0-2); EOSINOPHILS 0.3 % (0-7); HEMATOCRIT 26.8 % (36.0-48.0); HEMOGLOBIN 8.8 g/dL (12-16); IMMATURE GRANULOCYTES 4.4 % (0-5); LYMPHOCYTES 10.7 % (15-50); MCHC 32.8 g/dL (31.0-37.0); MCV 82.2 fL (80.0-100.0); MONOCYTES 6.3 % (2-11); PLATELET COUNT 214 10x3/uL (130-400); RBC 3.26 10x6/uL (4.00-5.40); RDW 17.7 % (11.5-14.5); WBC 14.9 10x3/uL (4.8-10.8)
[2018-01-28 02:56] LABS: APTT 22.7 SECONDS (22.8-39.4); INR 0.97 (0.85-1.17); PROTIME 12.5 SECONDS (11.6-15.0)
[2018-01-28 02:57] LABS: ALBUMIN 2.5 g/dL (3.4-5.0); BILIRUBIN - TOTAL 0.5 mg/dL (0.2-1.3); CALCIUM 8.4 mg/dL (8.5-10.1); CARBON DIOXIDE 28.5 mmol/L (21.0-32.0); CREATININE - SERUM 6.4 mg/dL (0.6-1.3); POTASSIUM - SERUM 3.5 mmol/L (3.5-5.1); PROTEIN - SERUM 6.1 g/dL (6.4-8.2)
[2018-01-28 03:09] LABS: CKMB 2.9 U/L (0.0-3.6); CREATINE KINASE 41 UL (21-215); TROPONIN-I 0.032 ng/mL (0.000-0.060)
[2018-01-28 03:11] LABS: D-DIMER-QUANTITATIVE 17.79 ug/mLFEU (0.20-0.54)
[2018-01-28 07:40] LABS: CREATINE KINASE 42 UL (21-215)
[2018-01-29] VITALS (24 sets, daily range): BP systolic 96–148; BP diastolic 44–68; Ht 157.5 cm; Wt 81.5 kg
[2018-01-29 04:31] LABS: ANION GAP 14.6 mmol/L (8-16); BILIRUBIN - TOTAL 0.59 mg/dL (0.2-1.3); CARBON DIOXIDE 23.4 mmol/L (21.0-32.0); CREATININE - SERUM 7.6 mg/dL (0.6-1.3); MAGNESIUM - SERUM 1.8 mg/dL (1.8-2.4); PROTEIN - SERUM 4.9 g/dL (6.4-8.2)
[2018-01-29 04:41] LABS: BASOPHILS 0.3 % (0-2); EOSINOPHILS 0.5 % (0-7); IMMATURE GRANULOCYTES 0.9 % (0-5); LYMPHOCYTES 12.6 % (15-50); MCHC 33.2 g/dL (31.0-37.0); MCV 81.5 fL (80.0-100.0); MEAN PLATELET VOLUME 8.6 fL (7.4-10.4); MONOCYTES 6.5 % (2-11); NEUTROPHILS 79.2 % (40-80); RBC 2.59 10x6/uL (4.00-5.40); RDW 18.5 % (11.5-14.5); WBC 10.6 10x3/uL (4.8-10.8)
[2018-01-29 04:42] LABS: HEMATOCRIT 21.1 % (36.0-48.0); HEMOGLOBIN 6.9 g/dL (12-16); PLATELET COUNT 151 10x3/uL (130-400)
[2018-01-30] VITALS (24 sets, daily range): BP systolic 95–137; BP diastolic 41–74
[2018-01-30 04:15] LABS: BASOPHILS 0.3 % (0-2); EOSINOPHILS 0.4 % (0-7); IMMATURE GRANULOCYTES 1.9 % (0-5); LYMPHOCYTES 12.6 % (15-50); MCHC 33.6 g/dL (31.0-37.0); MEAN PLATELET VOLUME 8.8 fL (7.4-10.4); MONOCYTES 7.1 % (2-11); NEUTROPHILS 77.7 % (40-80); PLATELET COUNT 150 10x3/uL (130-400); RDW 17.4 % (11.5-14.5); WBC 11.4 10x3/uL (4.8-10.8)
[2018-01-30 04:21] LABS: HEMATOCRIT 28.9 % (36.0-48.0); HEMOGLOBIN 9.7 g/dL (12-16); MCV 83.5 fL (80.0-100.0); RBC 3.46 10x6/uL (4.00-5.40)
[2018-01-30 04:38] LABS: ANION GAP 15.1 mmol/L (8-16); BILIRUBIN - TOTAL 0.64 mg/dL (0.2-1.3); CALCIUM 8.3 mg/dL (8.5-10.1); CARBON DIOXIDE 24.7 mmol/L (21.0-32.0); MAGNESIUM - SERUM 1.9 mg/dL (1.8-2.4); POTASSIUM - SERUM 3.8 mmol/L (3.5-5.1); PROTEIN - SERUM 5.2 g/dL (6.4-8.2)
[2018-01-30 04:41] LABS: CREATININE - SERUM 5.3 mg/dL (0.6-1.3)
[2018-01-31] VITALS (22 sets, daily range): BP systolic 67–160; BP diastolic 42–74
[2018-01-31 06:01] LABS: BASOPHILS 0.2 % (0-2); EOSINOPHILS 0.5 % (0-7); HEMOGLOBIN 9.6 g/dL (12-16); IMMATURE GRANULOCYTES 1.4 % (0-5); MCH 28.1 pg (26.0-34.0); MCHC 33.1 g/dL (31.0-37.0); MCV 84.8 fL (80.0-100.0); MEAN PLATELET VOLUME 9.2 fL (7.4-10.4); MONOCYTES 9.1 % (2-11); NEUTROPHILS 78.8 % (40-80); PLATELET COUNT 145 10x3/uL (130-400); RBC 3.42 10x6/uL (4.00-5.40); RDW 18.3 % (11.5-14.5); WBC 11.3 10x3/uL (4.8-10.8)
[2018-01-31 06:17] LABS: ALBUMIN 1.9 g/dL (3.4-5.0); ANION GAP 17.9 mmol/L (8-16); BILIRUBIN - TOTAL 0.62 mg/dL (0.2-1.3); CALCIUM 8.3 mg/dL (8.5-10.1); CARBON DIOXIDE 23.7 mmol/L (21.0-32.0); CREATININE - SERUM 6.5 mg/dL (0.6-1.3); MAGNESIUM - SERUM 2.2 mg/dL (1.8-2.4); POTASSIUM - SERUM 3.6 mmol/L (3.5-5.1); PROTEIN - SERUM 5.7 g/dL (6.4-8.2); VANCOMYCIN - RANDOM 24.6 ug/mL (10.0-20.0)
[2018-02-01] VITALS (24 sets, daily range): BP systolic 100–151; BP diastolic 44–84
[2018-02-01 05:33] LABS: BASOPHILS 0.5 % (0-2); EOSINOPHILS 0.5 % (0-7); HEMATOCRIT 29.4 % (36.0-48.0); HEMOGLOBIN 9.6 g/dL (12-16); IMMATURE GRANULOCYTES 2.6 % (0-5); LYMPHOCYTES 11.8 % (15-50); MCH 27.9 pg (26.0-34.0); MCHC 32.7 g/dL (31.0-37.0); MCV 85.5 fL (80.0-100.0); MEAN PLATELET VOLUME 9.3 fL (7.4-10.4); NEUTROPHILS 74.6 % (40-80); PLATELET COUNT 171 10x3/uL (130-400); RBC 3.44 10x6/uL (4.00-5.40); RDW 18.8 % (11.5-14.5); WBC 11.8 10x3/uL (4.8-10.8)
[2018-02-01 05:59] LABS: ALBUMIN 1.9 g/dL (3.4-5.0); ANION GAP 14.7 mmol/L (8-16); BILIRUBIN - TOTAL 0.5 mg/dL (0.2-1.3); CARBON DIOXIDE 26.7 mmol/L (21.0-32.0); CREATININE - SERUM 4.6 mg/dL (0.6-1.3); MAGNESIUM - SERUM 2.1 mg/dL (1.8-2.4); PHOSPHOROUS 3.1 mg/dL (2.5-4.9); POTASSIUM - SERUM 3.4 mmol/L (3.5-5.1); PROTEIN - SERUM 5.8 g/dL (6.4-8.2); VANCOMYCIN - RANDOM 21.6 ug/mL (10.0-20.0)
[2018-02-01 10:21] LABS: HEPATITIS C ANTIBODY <0.1 (0.0-0.9)
[2018-02-02] VITALS (24 sets, daily range): BP systolic 91–155; BP diastolic 39–80
[2018-02-02 05:07] LABS: BASOPHILS 0.5 % (0-2); EOSINOPHILS 0.7 % (0-7); HEMATOCRIT 28.9 % (36.0-48.0); HEMOGLOBIN 9.3 g/dL (12-16); IMMATURE GRANULOCYTES 3.5 % (0-5); LYMPHOCYTES 14.2 % (15-50); MCH 27.7 pg (26.0-34.0); MCHC 32.2 g/dL (31.0-37.0); MEAN PLATELET VOLUME 9.4 fL (7.4-10.4); MONOCYTES 8.5 % (2-11); NEUTROPHILS 72.6 % (40-80); PLATELET COUNT 155 10x3/uL (130-400); RBC 3.36 10x6/uL (4.00-5.40); WBC 10.7 10x3/uL (4.8-10.8)
[2018-02-02 05:22] LABS: ALBUMIN 1.8 g/dL (3.4-5.0); ANION GAP 16.2 mmol/L (8-16); BILIRUBIN - TOTAL 0.5 mg/dL (0.2-1.3); CALCIUM 8.5 mg/dL (8.5-10.1); CARBON DIOXIDE 25.4 mmol/L (21.0-32.0); CREATININE - SERUM 5.7 mg/dL (0.6-1.3); MAGNESIUM - SERUM 2.4 mg/dL (1.8-2.4); POTASSIUM - SERUM 3.6 mmol/L (3.5-5.1); PROTEIN - SERUM 5.8 g/dL (6.4-8.2); VANCOMYCIN - RANDOM 20.1 ug/mL (10.0-20.0)
[2018-02-03] VITALS (25 sets, daily range): BP systolic 94–134; BP diastolic 42–56
[2018-02-03 05:00] LABS: BASOPHILS 0.8 % (0-2); EOSINOPHILS 0.5 % (0-7); HEMATOCRIT 28.4 % (36.0-48.0); HEMOGLOBIN 9.1 g/dL (12-16); IMMATURE GRANULOCYTES 5.1 % (0-5); LYMPHOCYTES 17.3 % (15-50); MCH 27.8 pg (26.0-34.0); MCV 86.9 fL (80.0-100.0); MEAN PLATELET VOLUME 9.2 fL (7.4-10.4); MONOCYTES 8.6 % (2-11); NEUTROPHILS 67.7 % (40-80); PLATELET COUNT 168 10x3/uL (130-400); RBC 3.27 10x6/uL (4.00-5.40); RDW 19.1 % (11.5-14.5)
[2018-02-03 05:26] LABS: ALBUMIN 1.7 g/dL (3.4-5.0); ANION GAP 13.4 mmol/L (8-16); BILIRUBIN - TOTAL 0.6 mg/dL (0.2-1.3); CALCIUM 8.9 mg/dL (8.5-10.1); MAGNESIUM - SERUM 2.3 mg/dL (1.8-2.4); PHOSPHOROUS 2.6 mg/dL (2.5-4.9); POTASSIUM - SERUM 3.4 mmol/L (3.5-5.1)
[2018-02-03 05:49] LABS: PROTEIN - SERUM 6.1 g/dL (6.4-8.2)
[2018-02-04] VITALS (24 sets, daily range): BP systolic 117–152; BP diastolic 45–61
[2018-02-04 03:54] LABS: BASOPHILS 0.5 % (0-2); EOSINOPHILS 0.8 % (0-7); HEMATOCRIT 29.2 % (36.0-48.0); HEMOGLOBIN 9.5 g/dL (12-16); IMMATURE GRANULOCYTES 7.5 % (0-5); LYMPHOCYTES 14.9 % (15-50); MCH 28.4 pg (26.0-34.0); MCHC 32.5 g/dL (31.0-37.0); MCV 87.2 fL (80.0-100.0); MEAN PLATELET VOLUME 9.6 fL (7.4-10.4); MONOCYTES 11.9 % (2-11); NEUTROPHILS 64.4 % (40-80); RBC 3.35 10x6/uL (4.00-5.40); RDW 19.1 % (11.5-14.5); WBC 12.8 10x3/uL (4.8-10.8)
[2018-02-04 03:56] LABS: PLATELET COUNT 211 10x3/uL (130-400)
[2018-02-04 04:07] LABS: ALBUMIN 1.7 g/dL (3.4-5.0); BILIRUBIN - TOTAL 0.6 mg/dL (0.2-1.3); CALCIUM 8.5 mg/dL (8.5-10.1); CARBON DIOXIDE 26.5 mmol/L (21.0-32.0); CREATININE - SERUM 4.9 mg/dL (0.6-1.3); PROTEIN - SERUM 6.4 g/dL (6.4-8.2); VANCOMYCIN - RANDOM 29.8 ug/mL (10.0-20.0)
[2018-02-04 04:11] LABS: ANION GAP 15.7 mmol/L (8-16); PHOSPHOROUS 3.5 mg/dL (2.5-4.9); POTASSIUM - SERUM 4.2 mmol/L (3.5-5.1)
[2018-02-05] VITALS (24 sets, daily range): BP systolic 113–181; BP diastolic 44–79
[2018-02-05 04:08] LABS: BASOPHILS 0.6 % (0-2); EOSINOPHILS 1.3 % (0-7); HEMATOCRIT 29.4 % (36.0-48.0); HEMOGLOBIN 9.4 g/dL (12-16); IMMATURE GRANULOCYTES 8.3 % (0-5); LYMPHOCYTES 19.5 % (15-50); MCH 28.4 pg (26.0-34.0); MCV 88.8 fL (80.0-100.0); MEAN PLATELET VOLUME 9.6 fL (7.4-10.4); MONOCYTES 15.3 % (2-11); PLATELET COUNT 233 10x3/uL (130-400); RBC 3.31 10x6/uL (4.00-5.40); RDW 19.6 % (11.5-14.5); WBC 10.6 10x3/uL (4.8-10.8)
[2018-02-05 04:31] LABS: ANION GAP 15.8 mmol/L (8-16); CALCIUM 8.8 mg/dL (8.5-10.1); CARBON DIOXIDE 25.7 mmol/L (21.0-32.0); CREATININE - SERUM 3.7 mg/dL (0.6-1.3); PHOSPHOROUS 2.9 mg/dL (2.5-4.9); VANCOMYCIN - RANDOM 23.6 ug/mL (10.0-20.0)
[2018-02-05 04:37] LABS: POTASSIUM - SERUM 3.5 mmol/L (3.5-5.1)
[2018-02-06] VITALS (32 sets, daily range): BP systolic 79–182; BP diastolic 38–87
[2018-02-06 04:28] LABS: BASOPHILS 1.1 % (0-2); EOSINOPHILS 1.4 % (0-7); HEMATOCRIT 34.2 % (36.0-48.0); IMMATURE GRANULOCYTES 7.7 % (0-5); LYMPHOCYTES 14.9 % (15-50); MCH 28.5 pg (26.0-34.0); MCHC 32.2 g/dL (31.0-37.0); MCV 88.6 fL (80.0-100.0); MEAN PLATELET VOLUME 9.5 fL (7.4-10.4); MONOCYTES 8.4 % (2-11); NEUTROPHILS 66.5 % (40-80); RBC 3.86 10x6/uL (4.00-5.40); RDW 19.3 % (11.5-14.5)
[2018-02-06 04:34] LABS: PLATELET COUNT 346 10x3/uL (130-400); WBC 15.2 10x3/uL (4.8-10.8)
[2018-02-06 04:46] LABS: BILIRUBIN - TOTAL 0.74 mg/dL (0.2-1.3); CALCIUM 9.6 mg/dL (8.5-10.1); CARBON DIOXIDE 24.7 mmol/L (21.0-32.0); POTASSIUM - SERUM 3.7 mmol/L (3.5-5.1); PROTEIN - SERUM 7.3 g/dL (6.4-8.2); VANCOMYCIN - RANDOM 21.5 ug/mL (10.0-20.0)
[2018-02-06 04:55] LABS: CREATININE - SERUM 4.9 mg/dL (0.6-1.3); PHOSPHOROUS 4.5 mg/dL (2.5-4.9)
[2018-02-07] VITALS (23 sets, daily range): BP systolic 105–161; BP diastolic 47–60
[2018-02-07 03:48] LABS: BASOPHILS 0.6 % (0-2); EOSINOPHILS 2.1 % (0-7); HEMATOCRIT 28.4 % (36.0-48.0); IMMATURE GRANULOCYTES 5.7 % (0-5); LYMPHOCYTES 19.6 % (15-50); MCH 27.5 pg (26.0-34.0); MCHC 31.7 g/dL (31.0-37.0); MCV 86.9 fL (80.0-100.0); MEAN PLATELET VOLUME 8.8 fL (7.4-10.4); MONOCYTES 8.2 % (2-11); NEUTROPHILS 63.8 % (40-80); PLATELET COUNT 285 10x3/uL (130-400); RBC 3.27 10x6/uL (4.00-5.40); RDW 19.2 % (11.5-14.5)
[2018-02-07 03:53] LABS: WBC 10.9 10x3/uL (4.8-10.8)
[2018-02-07 04:15] LABS: ALBUMIN 1.5 g/dL (3.4-5.0); ANION GAP 17.4 mmol/L (8-16); BILIRUBIN - TOTAL 0.4 mg/dL (0.2-1.3); CALCIUM 8.2 mg/dL (8.5-10.1); CREATININE - SERUM 5.9 mg/dL (0.6-1.3); MAGNESIUM - SERUM 2.5 mg/dL (1.8-2.4); PHOSPHOROUS 5.4 mg/dL (2.5-4.9); POTASSIUM - SERUM 3.4 mmol/L (3.5-5.1); PROTEIN - SERUM 5.7 g/dL (6.4-8.2); TROPONIN-I 0.041 ng/mL (0.000-0.060); VANCOMYCIN - RANDOM 18.5 ug/mL (10.0-20.0)
[2018-02-08] VITALS (24 sets, daily range): BP systolic 97–144; BP diastolic 41–59
[2018-02-08 04:33] LABS: BASOPHILS 0.7 % (0-2); EOSINOPHILS 1.9 % (0-7); HEMATOCRIT 29.6 % (36.0-48.0); HEMOGLOBIN 9.3 g/dL (12-16); IMMATURE GRANULOCYTES 6.6 % (0-5); LYMPHOCYTES 18.2 % (15-50); MCH 27.7 pg (26.0-34.0); MCHC 31.4 g/dL (31.0-37.0); MCV 88.1 fL (80.0-100.0); MEAN PLATELET VOLUME 9.3 fL (7.4-10.4); MONOCYTES 11.5 % (2-11); NEUTROPHILS 61.1 % (40-80); RBC 3.36 10x6/uL (4.00-5.40); RDW 19.5 % (11.5-14.5); WBC 10.7 10x3/uL (4.8-10.8)
[2018-02-08 04:34] LABS: PLATELET COUNT 345 10x3/uL (130-400)
[2018-02-08 04:46] LABS: ALBUMIN 1.7 g/dL (3.4-5.0); ANION GAP 13.7 mmol/L (8-16); BILIRUBIN - TOTAL 0.45 mg/dL (0.2-1.3); CALCIUM 8.4 mg/dL (8.5-10.1); CARBON DIOXIDE 25.6 mmol/L (21.0-32.0); POTASSIUM - SERUM 3.3 mmol/L (3.5-5.1); PROTEIN - SERUM 6.1 g/dL (6.4-8.2)
[2018-02-08 04:49] LABS: CREATININE - SERUM 3.8 mg/dL (0.6-1.3); PHOSPHOROUS 3.5 mg/dL (2.5-4.9)
[2018-02-09] VITALS (10 sets, daily range): BP systolic 120–147; BP diastolic 37–51
== END 2018-02-09 09:30 | disposition hospice, inpatient (51) | DRG 207 ==
LOC: D.ICU 23:45 → UNDOADMIN 01-28 00:07 → D.ICU 02-09 09:30
PROVIDERS: Emergency Medicine; Internal Medicine Nephrology; Internal Medicine Pulmonary Disease
PROC: 5A1945Z Respiratory Ventilation, 24-96 Consecutive Hours (ICD-10-PCS; 2018-01-27)
PROC: 0BH17EZ Insertion of Endotracheal Airway into Trachea, Via Natural or Artificial Opening (ICD-10-PCS; 2018-01-27)
PROC: 5A1955Z Respiratory Ventilation, Greater than 96 Consecutive Hours (ICD-10-PCS; principal; 2018-01-28)
PROC: 0BH17EZ Insertion of Endotracheal Airway into Trachea, Via Natural or Artificial Opening (ICD-10-PCS; 2018-01-28)
DX: I26.99 Other pulmonary embolism without acute cor pulmonale (principal); R53.2 Functional quadriplegia; I46.2 Cardiac arrest due to underlying cardiac condition; J96.00 Acute respiratory failure, unspecified whether with hypoxia or hypercapnia; N18.6 End stage renal disease; J18.9 Pneumonia, unspecified organism; I12.0 Hypertensive chronic kidney disease with stage 5 chronic kidney disease or end stage renal disease; G72.81 Critical illness myopathy; E87.1 Hypo-osmolality and hyponatremia; E11.22 Type 2 diabetes mellitus with diabetic chronic kidney disease; Z99.2 Dependence on renal dialysis; I48.2 Chronic atrial fibrillation; I34.0 Nonrheumatic mitral (valve) insufficiency; R00.1 Bradycardia, unspecified; D72.829 Elevated white blood cell count, unspecified; D64.9 Anemia, unspecified

== ENCOUNTER 2018-02-09 10:54 | Inpatient (IN) | payer OTHER ==
[~2018-02-09] VITALS: Ht 157.5 cm; Wt 77.3 kg
[2018-02-09 11:00] VITALS: BP 141/52
[2018-02-09 11:12] VITALS: BP 140/50; Ht 157.5 cm; Wt 77.3 kg
[2018-02-09 12:00] VITALS: BP 142/52
[2018-02-09 14:48] VITALS: BP 169/48
[2018-02-09 20:18] VITALS: BP 164/44
[2018-02-10 00:49] VITALS: BP 136/57
[2018-02-10 04:50] VITALS: BP 172/56
[2018-02-10 08:19] VITALS: BP 189/65
[2018-02-10 20:07] VITALS: BP 128/39
[2018-02-11 08:27] VITALS: BP 98/32
== END 2018-02-11 12:45 | DRG 951 ==
LOC: D.ICU 10:54 → D.M2 10:54 → D.SDCHOLD 02-10 11:13 → D.M2 02-10 11:13
DX: Z51.5 Encounter for palliative care (principal)